=== PATIENT | male | born 1990 | race Two or more races ===

== ENCOUNTER 2021-12-21 22:41 | Emergency (ER) | payer OTHER ==
[~2021-12-21] VITALS: Ht 185.4 cm; Wt 117.9 kg
[2021-12-21 22:54] VITALS: BP 135/87
[2021-12-21] MEDS ORDERED: KETO10TA2 PO (22:55)
== END 2021-12-21 22:59 | disposition home or self-care (01) ==
LOC: ER 22:41
DX: B35.6 Tinea cruris (principal); F17.200 Nicotine dependence, unspecified, uncomplicated

== ENCOUNTER 2021-12-27 12:56 | Emergency (ER) | payer OTHER ==
[~2021-12-27] VITALS: Ht 182.9 cm; Wt 117.9 kg
[~2021-12-27 12:56] MED LIST: KETO10TA2 PO
--- NOTE | 2021-12-27 13:24 | NUR ---
To ER bed 10, "Been taking Heliun Gas and stopped 3d ago. Feel like I am hallucinating", aaox3, breathing even and non labored, connected to monitor, awaiting md sarah
--- NOTE | 2021-12-27 14:25 | NUR ---
SALINE LOCK ESTABLISHED, BLOOD DRAWN AND SENT TO LAB
[2021-12-27] MEDS ORDERED: IV NS 0.9% 1,000 ML BAG IV ONE (14:30)
[2021-12-27 14:39] LABS: HEMATOCRIT 35 % (39-51); HEMOGLOBIN 11.4 g/dL (13.5-17.5); LYMPHOCYTES # (AUTO) 2.3 K/uL (0.8-4.8); LYMPHOCYTES % (AUTO) 33.4 % (20.0-44.0); MEAN CORPUSCULAR HGB CONC 33 g/dl (31.0-36.0); MEAN CORPUSCULAR VOLUME 86 fL (80-96); MONOCYTES # (AUTO) 0.9 K/uL (0.1-1.30); MONOCYTES % (AUTO) 12.9 % (2.0-12.0); NEUTROPHILS # (AUTO) 3.5 K/uL (1.8-8.9); NEUTROPHILS % (AUTO) 50.7 % (43.0-81.0); PLATELET COUNT (AUTO) 282 K/uL (150-450); WHITE BLOOD COUNT (AUTO) 6.9 K/uL (4.3-11.0)
[2021-12-27 14:50] LABS: ALBUMIN 3.1 g/dL (3.4-5.0); BILIRUBIN,DIRECT 0.1 mg/dL (0.0-0.2); BILIRUBIN,TOTAL 0.2 mg/dL (0.2-1.0); CALCIUM, SERUM 8.9 mg/dL (8.5-10.1); CREATININE 0.8 mg/dL (0.6-1.3); POTASSIUM 4.9 mmol/L (3.5-5.1); TOTAL PROTEIN, SERUM 7.2 g/dL (6.4-8.2)
[2021-12-27 15:37] LABS: EOSINOPHILS % (MANUAL) 2 % (0-4); LYMPHOCYTES % (MANUAL) 30 % (16-48); MONOCYTES % (MANUAL) 12 % (0-11.0); NEUTROPHILS % (MANUAL) 56 (42-76)
--- NOTE | 2021-12-27 15:58 | NUR ---
IV removed. Catheter intact and site benign. Pressure and 4x4 applied to site. No bleeding noted.Patient discharged to home in stable condition. Written and verbal after care instructions given. Patient verbalizes understanding of instruction.
[2021-12-27 15:59] VITALS: BP 134/80
== END 2021-12-27 15:59 | disposition home or self-care (01) ==
LOC: ER 13:02
DX: R42 Dizziness and giddiness (principal); F17.200 Nicotine dependence, unspecified, uncomplicated; T41.0X5A Adverse effect of inhaled anesthetics, initial encounter; Y92.89 Other specified places as the place of occurrence of the external cause
CPT/HCPCS: 99283; 96360; 85025; 80048; 80076; 36415; 85007; J7030

== ENCOUNTER 2024-01-12 19:31 | Inpatient (IN) | payer MEDICAID, OTHER ==
[~2024-01-12] VITALS: Ht 177.8 cm; Wt 105.7 kg
[2024-01-12] MEDS ORDERED: IV NS 0.9% 250 ML IV ONE (20:55)
[2024-01-12] MEDS ORDERED: IOHEXOL-300 100 ML VIAL IV ONE (20:55)
[2024-01-12 20:58] LABS: BASOPHILS % (AUTO) 0.2 % (0.0-2.0); EOSINOPHILS # (AUTO) 0.1 K/uL (0.0-0.7); EOSINOPHILS % (AUTO) 0.5 % (0.0-6.0); HEMATOCRIT 46 % (39-51); HEMOGLOBIN 14.9 g/dL (13.5-17.5); LYMPHOCYTES # (AUTO) 1.5 K/uL (0.8-4.8); LYMPHOCYTES % (AUTO) 8.8 % (20.0-44.0); MEAN CORPUSCULAR HEMOGLOBIN 26 PG (26.0-33.0); MEAN CORPUSCULAR HGB CONC 32 g/dl (31.0-36.0); MEAN CORPUSCULAR VOLUME 81 fL (80-96); MONOCYTES # (AUTO) 0.7 K/uL (0.1-1.30); MONOCYTES % (AUTO) 4.3 % (2.0-12.0); NEUTROPHILS # (AUTO) 14.2 K/uL (1.8-8.9); NEUTROPHILS % (AUTO) 86.2 % (43.0-81.0); PLATELET COUNT (AUTO) 318 K/uL (150-450); RED BLOOD CELL COUNT(AUTO) 5.73 MIL/uL (4.5-6.0); RED CELL DISTRIBUTION WIDTH 15.6 % (11.5-15.0); WHITE BLOOD COUNT (AUTO) 16.5 K/uL (4.3-11.0)
[2024-01-12] MEDS ORDERED: MORPHINE SULFATE INJ 2 MG/ML DISP.SYRIN ONE (21:04)
[2024-01-12] MEDS: MORPHINE SULFATE INJ 2 MG/ML DISP.SYRIN IV ONE ×2 (21:05→22:42)
[2024-01-12] MEDS: IV NS 0.9% 1,000 ML BAG IV ONE (21:05)
[2024-01-12 21:14] LABS: LACTIC ACID 1.3 mmol/L (0.4-2.0)
[2024-01-12 21:20] LABS: ALBUMIN 3.9 g/dL (3.4-5.0); BILIRUBIN,DIRECT 0.1 mg/dL (0.0-0.2); BILIRUBIN,TOTAL 0.3 mg/dL (0.2-1.0); CALCIUM, SERUM 9.2 mg/dL (8.5-10.1); CREATININE 0.9 mg/dL (0.6-1.3); POTASSIUM 4.1 mmol/L (3.5-5.1); TOTAL PROTEIN, SERUM 8.4 g/dL (6.4-8.2)
[2024-01-12] MEDS ORDERED: MORPHINE SULFATE INJ 4 MG/ML DISP.SYRIN ONE (22:28)
[2024-01-12] MEDS ORDERED: CEFTRIAXONE 1GM BAG (ER ONLY) 50 ML IV ONE (22:28)
[2024-01-12] MEDS: CEFTRIAXONE 1 G in IV D5W 50 ML IV ONE (22:42)
[2024-01-12] MEDS ORDERED: METRONIDAZOLE 500MG/ NS 100ML 100 ML IV ONE (22:48)
[2024-01-12] MEDS: FLAGYL/NS RTU 500 MG/100 ML PIGGYBACK IV ONE (22:49)
[2024-01-13] VITALS: BP 125/80; TEMP 97.7; O2SAT 100
[2024-01-13] MEDS ORDERED: ONDANSETRON HCL/PF 4 MG/2 ML VIAL IVP PRN
[2024-01-13] MEDS: IV NS 0.9% 1,000 ML IV PRN (01:21)
[2024-01-13 04:00] VITALS: BP 114/66; TEMP 98.6; O2SAT 97
[2024-01-13] MEDS ORDERED: METRONIDAZOLE 500MG/ NS 100ML 100 ML IV ONE (04:37)
[2024-01-13] MEDS: METRONIDAZOLE 500MG/ NS 100ML 500 MG in PREMIX 1 EA IV SCH (04:39)
[2024-01-13] MEDS: PANTOPRAZOLE 40 MG VIAL IV SCH (08:09)
[2024-01-13] MEDS: MORPHINE SULFATE INJ 2 MG/ML DISP.SYRIN IV PRN (08:09)
[2024-01-13] MEDS: CEFTRIAXONE 1 G in IV D5W 50 ML IV SCH (08:10)
[2024-01-13 12:00] VITALS: BP 97/74; TEMP 98; O2SAT 97
[2024-01-13 20:25] VITALS: BP 106/68; TEMP 98.1; O2SAT 100
[2024-01-13] MEDS ORDERED: CARISOPRODOL 350 MG TABLET PO PRN (20:30)
[2024-01-13 20:42] LABS: BASOPHILS % (AUTO) 0.1 % (0.0-2.0); EOSINOPHILS # (AUTO) 0.3 K/uL (0.0-0.7); EOSINOPHILS % (AUTO) 2.6 % (0.0-6.0); HEMATOCRIT 40 % (39-51); LYMPHOCYTES # (AUTO) 2.7 K/uL (0.8-4.8); LYMPHOCYTES % (AUTO) 23.2 % (20.0-44.0); MEAN CORPUSCULAR HEMOGLOBIN 26 PG (26.0-33.0); MEAN CORPUSCULAR HGB CONC 33 g/dl (31.0-36.0); MEAN CORPUSCULAR VOLUME 80 fL (80-96); MONOCYTES # (AUTO) 0.8 K/uL (0.1-1.30); MONOCYTES % (AUTO) 6.6 % (2.0-12.0); NEUTROPHILS % (AUTO) 67.5 % (43.0-81.0); PLATELET COUNT (AUTO) 266 K/uL (150-450); WHITE BLOOD COUNT (AUTO) 11.8 K/uL (4.3-11.0)
[2024-01-13 21:18] LABS: ALBUMIN 2.9 g/dL (3.4-5.0); BILIRUBIN,DIRECT 0.1 mg/dL (0.0-0.2); BILIRUBIN,TOTAL 0.3 mg/dL (0.2-1.0); CALCIUM, SERUM 8.6 mg/dL (8.5-10.1); CREATININE 0.9 mg/dL (0.6-1.3); MAGNESIUM 1.9 mg/dL (1.8-2.4); PHOSPHORUS 4.4 mg/dL (2.5-4.9); POTASSIUM 3.6 mmol/L (3.5-5.1); TOTAL PROTEIN, SERUM 6.7 g/dL (6.4-8.2)
[2024-01-14 04:15] VITALS: BP 119/74; TEMP 98.5; O2SAT 97
[2024-01-14] MEDS: NICOTINE PATCH (21MG) 21 MG PATCH.TD24 TD SCH (08:23)
[2024-01-14] MEDS: CARISOPRODOL 350 MG TABLET PO PRN (08:23)
[2024-01-14] MEDS ORDERED: GADOTERATE MEGLUMINE 10 MMOL/20 ML VIAL IV ONE (10:00)
[2024-01-14] MEDS: LORAZEPAM 1 MG TABLET PO PRN (11:27)
[2024-01-14 12:00] VITALS: BP 103/68; TEMP 97.7; O2SAT 96
[2024-01-14 13:40] LABS: HIV-1 p24 ANTIGEN NON REACTIVE (NONREACTIVE); HIV-1/2 ANTIBODY NON REACTIVE (NONREACTIVE)
[2024-01-14 20:00] VITALS: BP 110/72; TEMP 97.9; O2SAT 98
[2024-01-14] MEDS: MAGNESIUM HYDROXIDE 30 ML UDC PO PRN (22:15)
[2024-01-15 02:09] LABS: AMPHETAMINE, URINE NEGATIVE (NEGATIVE); BARBITURATE, URINE NEGATIVE (NEGATIVE); BENZODIAZEPINE, URINE NEGATIVE (NEGATIVE); CANNABINOID, URINE NEGATIVE (NEGATIVE); COCCAINE, URINE NEGATIVE (NEGATIVE); OPIATE, URINE POSITIVE (NEGATIVE); PHENCYCLIDINE SCREEN,URINE NEGATIVE (NEGATIVE)
[2024-01-15 04:00] VITALS: BP 109/75; TEMP 97.5; O2SAT 98
[2024-01-15 06:10] LABS: AFP, TUMOR MARKER 3.5 ng/mL (0.0-6.9); CARBOHYDRATE AG 19-9 5 U/mL (0-35)
[2024-01-15] MEDS: PANTOPRAZOLE 40 MG TABLET.DR PO SCH (08:10)
[2024-01-15 12:00] VITALS: BP 118/76; TEMP 97.9; O2SAT 98
[2024-01-15 12:09] LABS: HEPATITIS B SURFACE AB Equivocal (.)
[2024-01-15 20:00] VITALS: BP 115/72; TEMP 98; O2SAT 98
[2024-01-16 04:00] VITALS: BP 115/72; TEMP 98; O2SAT 98
[2024-01-16 08:00] VITALS: BP 124/83; TEMP 98.1; O2SAT 99
[2024-01-16] MEDS ORDERED: METRONIDAZOLE 500 MG TABLET PO SCH (13:00)
== END 2024-01-16 12:57 | disposition left against medical advice (07) ==
LOC: ER 19:38 → MEDSG1 23:34
PROVIDERS: ADMIT Nurse Practitioner Family
DX: K76.89 Other specified diseases of liver (principal); Q44.79 Other congenital malformations of liver; D72.829 Elevated white blood cell count, unspecified; R73.9 Hyperglycemia, unspecified; Z68.33 Body mass index [BMI] 33.0-33.9, adult; Z53.29 Procedure and treatment not carried out because of patient's decision for other reasons; K59.00 Constipation, unspecified; E66.9 Obesity, unspecified
CPT/HCPCS: 36415; 74183; 76705-TC; 80048-TC; 80076-TC; 82105; 82378; 83605-TC; 83690-TC; 83735-TC; 84100-TC; 85025-TC; 86301; 86706; 86803; 87340; 87806; A4216; A4223; A9575; G0378; J0696; J2270; J2470; J7030; J7050; J7060; Q9967